=== PATIENT | male | born 1975 | race Caucasian/White ===

== ENCOUNTER 2018-01-28 14:18 | Observation (INO) | payer SELFPAY ==
[2018-01-28 14:34] LABS: ABSOLUTE BASOPHILS # (AUTO) 0.1 10^3/uL (0.0-0.2); ABSOLUTE MONOCYTES (AUTO) 1.5 10^3/uL (0.1-1.4); ABSOLUTE NEUT (AUTO) 12.9 10^3/uL (1.7-8.2); BASOPHILS % (AUTO) 0.4 % (0-2); EOSINOPHILS % (AUTO) 0.3 % (0-6); HEMATOCRIT 50.1 % (37.9-51.0); HEMOGLOBIN 17.2 g/dL (13.5-17.0); LYMPHOCYTES % (AUTO) 12.1 % (13-45); MEAN CORPUSCULAR HGB CONC 34.2 g/dL (32.0-36.0); MEAN CORPUSCULAR VOLUME 88 fl (80-97); MONOCYTES % (AUTO) 8.8 % (3-13); PLATELET COUNT 182 10^3/uL (150-450); RED BLOOD COUNT 5.72 10^6/uL (4.35-5.55); RED CELL DISTRIBUTION WIDTH 13.6 % (11.5-14.0); SEGMENTED NEUTROPHILS % (AUTO) 78.4 % (42-78); TOTAL CELLS COUNTED % (AUTO) 100 %; WHITE BLOOD COUNT 16.5 10^3/uL (4.0-10.5)
--- NOTE | 2018-01-28 14:50 | ER Document Report ---
ED Cardiac - General Mode of Arrival: Ambulatory Information source: Patient TRAVEL OUTSIDE OF THE [place] IN LAST 30 DAYS: No <MARYBEL BUI - Last Filed: 01/28/18 16:07> <COLEMAN MIRELES - Last Filed: 01/28/18 16:34> - General Chief Complaint: Chest Pain Stated Complaint: CHEST PAIN Time Seen by Provider: 01/28/18 14:35 Notes: 42 y.o male presents to the ED via EMS with CP of onset a couple of days ago. He reports that the pain started as just a discomfort but began to radiate to his LT armpit and now he describes the pain as sharp. Pt states that last night his CP was unbearable and when he was walking through a parking lot last night his pain and SOB was exacerbated. He states that normally he is very healthy and does not sleep all the time, but last night he slept for about 13 hours. Pt states that his pain is worsened with deep breaths. He states that the pain is increased with pushing on the LT side of his chest but pain is not increased with pushing to the right side of chest. Pt was given ASA 324mg, 1 Nitro, and 4mg Zofran by EMS en route, from which he reports some relief. Pt denies any recent travel or sitting for long periods of time. Patient denies any hx of HTN, however he reports he had his BP taken at the drug store prior to coming to the ED and it was 194/114. Pt denies any medical issues. He reports a PSHx of cholecystectomy. He reports a family hx of AZ with his father at age 44 and a pulmonary embolism with his paternal grandfather. (MARYBEL BUI) - Related Data Allergies/Adverse Reactions: morphine [Morphine] Allergy (Verified 09/06/15 16:38) Past Medical History - General Information source: Patient - Social History Smoking Status: Current Every Day Smoker Cigarette use (# per day): No Chew tobacco use (# tins/day): No Smoking Education Provided: No Frequency of alcohol use: None Drug Abuse: None Family History: Arthritis, CAD, CVA, DM, Hyperlipidemia, Hypertension, Malignancy, Thyroid Disfunction, Other - [place]: Paternal father at age 44; Pulmonary Embolis: Paternal grandfather. Musculoskeltal Medical History: Denies Hx Arthritis Past Surgical History: Reports: Hx Cholecystectomy - Immunizations Hx Diphtheria, Pertussis, Tetanus Vaccination: No <MARYBEL BUI - Last Filed: 01/28/18 16:07> Review of Systems - Review of Systems Constitutional: No symptoms reported EENT: No symptoms reported Cardiovascular: See HPI, Chest pain - radiating to LT armpit Respiratory: See HPI, Short of breath Gastrointestinal: No symptoms reported Genitourinary: No symptoms reported Male Genitourinary: No symptoms reported Musculoskeletal: No symptoms reported Skin: No symptoms reported Hematologic/Lymphatic: No symptoms reported Neurological/Psychological: No symptoms reported -: Yes All other systems reviewed and negative <MARYBEL BUI - Last Filed: 01/28/18 16:07> Physical Exam <MARYBEL BUI - Last Filed: 01/28/18 16:07> <COLEMAN MIRELES - Last Filed: 01/28/18 16:34> - Vital signs Vitals: Temp Resp BP Pulse Ox 98.7 F 14 132/91 H 96 01/28/18 14:28 01/28/18 14:28 01/28/18 14:28 01/28/18 14:28 - Notes Notes: PHYSICAL EXAM GENERAL: Alert, interacts well. No acute distress. HEAD: Normocephalic, atraumatic. EYES: Pupils equal, round, and reactive to light. Extraocular movements intact. ENT: Oral mucosa moist, tongue midline. NECK: Full range of motion. Supple. Trachea midline. LUNGS: Clear to auscultation bilaterally, no wheezes, rales, or rhonchi. No respiratory distress. HEART: Regular rate and rhythm. No murmurs, gallops, or rubs. Chest pain is increased with palpation to his LT sided chest but not to his RT sided chest. ABDOMEN: Soft, non-tender. Non-distended. Bowel sounds present in all 4 quadrants. No guarding, rebound, or rigidity. EXTREMITIES: Moves all 4 extremities spontaneously. No edema, radial and dorsalis pedis pulses 2/4 bilaterally. No cyanosis. NEUROLOGICAL: Alert and oriented x3. Normal speech. PSYCH: Normal affect, normal mood. SKIN: Warm, diaphoretic. Normal turgor. No rashes or lesions noted. (MARYBEL BUI) Course - Laboratory Result Diagrams: 01/28/18 13:48 01/28/18 13:48 <MARYBEL BUI - Last Filed: 01/28/18 16:07> - Laboratory Result Diagrams: 01/28/18 13:48 01/28/18 13:48 <COLEMAN MIRELES - Last Filed: 01/28/18 16:34> - Re-evaluation Re-evalutation: 01/28/18 16:32 CBC shows leukocytosis with white count of 16.2 there is some hemoconcentration as the hemoglobin is 17.2 otherwise unremarkable, d-dimer -0.27, patient is low risk [address] [place], show slightly elevated sodium at 145.2, CO2 slightly low 21, initial cardiac enzymes negative, no evidence of renal failure. Chest x -ray unremarkable. Initial EKG is nonischemic. Patient had pain that was relieved by nitroglycerin however he now states that he feels like an elephant is sitting on his chest, repeat EKG was ordered and this is also nonischemic. Patient's heart score is 3 however I am very concerned by the description of his pain and his family history of a father who from a heart attack at 45. I did discuss the patient with Dr. Ana Carson and my concern for unstable angina and he agrees to admit the patient to his service in observation status for a chest pain rule out. (COLEMAN MIRELES) - Vital Signs Vital signs: Temp Pulse Resp BP Pulse Ox 98.7 F 17 129/94 H 98 01/28/18 14:28 01/28/18 15:00 01/28/18 15:00 01/28/18 15:00 - Laboratory Laboratory results interpreted by me: 01/28/18 01/28/18 13:48 13:48 WBC 16.5 H RBC 5.72 H Hgb 17.2 H Seg Neutrophils % 78.4 H Lymphocytes % 12.1 L Absolute Neutrophils 12.9 H Absolute Monocytes 1.5 H Sodium 145.2 H Chloride 110 H Carbon Dioxide 21 L - EKG Interpretation by Me Additional EKG results interpreted by me: 01/28/18 16:33 EKG shows sinus rhythm rate of 75, slight left axis deviation, normal intervals , no ST segment elevations or depressions, there is nonspecific T-wave flattening in lead III per my interpretation. Repeat EKG at 1624 shows sinus rhythm at a rate of 64, normal axis, normal intervals, slight left axis deviation, still slight T-wave inversions in lead III per my interpretation. (COLEMAN MIRELES) Discharge <MARYBEL BUI - Last Filed: 01/28/18 16:07> - Discharge Admitting Provider: Hospitalist - [facility] Admitted: Telemetry <COLEMAN MIRELES - Last Filed: 01/28/18 16:34> - Discharge Clinical Impression: Chest pain, rule out acute myocardial infarction Condition: Fair Disposition: ADMITTED OBSERVATION Scribe Attestation: 01/28/18 16:34 I personally performed the services described in the documentation, reviewed and edited the documentation which was dictated to the scribe in my presence, and it accurately records my words and actions. (COLEMAN MIRELES) Scribe Documentation - Scribe Written by Zainab:: Zainab Ayers [id number] 01/28/18 acting as scribe for :: Vanessa <MARYBEL BUI - Last Filed: 01/28/18 16:07>
[2018-01-28] MEDS ORDERED: NITROGLYCERIN 0.4 MG/TAB 25 TAB/BOTTLE SL PRN ×2 (14:53→16:32)
[2018-01-28 15:02] LABS: ALANINE AMINOTRANSFERASE 33 U/L (21-72); ALBUMIN 4.5 g/dL (3.5-5.0); ALKALINE PHOSPHATASE 83 U/L (38-126); ANION GAP 14 (5-19); ASPARTATE AMINO TRANSFERASE 17 U/L (17-59); BILIRUBIN,DIRECT 0.4 mg/dL (0.0-0.4); BILIRUBIN,TOTAL 1.3 mg/dL (0.2-1.3); BLOOD UREA NITROGEN 12 mg/dL (7-20); CALCIUM 10.1 mg/dL (8.4-10.2); CARBON DIOXIDE 21 mmol/L (22-30); CHLORIDE 110 mmol/L (98-107); CREATINE KINASE 71 U/L (55-170); GLUCOSE 90 mg/dL (75-110); POTASSIUM 3.6 mmol/L (3.6-5.0); SODIUM 145.2 mmol/L (137-145); TOTAL PROTEIN 7.5 g/dL (6.3-8.2)
--- NOTE | 2018-01-28 15:11 | RADIOLOGY REPORT (SQ) ---
EXAM DESCRIPTION: CHEST SINGLE VIEW COMPLETED DATE/TIME: 01/28/2018 2:57 pm REASON FOR STUDY: cp COMPARISON: 09/06/2015. EXAM PARAMETERS: NUMBER OF VIEWS: One view. TECHNIQUE: Single frontal radiographic view of the chest acquired. RADIATION DOSE: NA LIMITATIONS: None. FINDINGS: LUNGS AND PLEURA: No opacities, masses or pneumothorax. No pleural effusion. MEDIASTINUM AND HILAR STRUCTURES: No masses. Contour normal. HEART AND VASCULAR STRUCTURES: Heart normal in size. Normal vasculature. BONES: No acute findings. HARDWARE: None in the chest. OTHER: No other significant finding. IMPRESSION: NO ACUTE RADIOGRAPHIC FINDING IN THE CHEST. TECHNICAL DOCUMENTATION: JOB ID: [id number] [employer]- All Rights Reserved Reading location - IP/workstation name: [email or web address]
[2018-01-28 15:12] LABS: CREATINE KINASE MB 0.41 ng/mL (<4.55)
[2018-01-28 15:13] LABS: TROPONIN I < 0.012 ng/mL
[2018-01-28] MEDS ORDERED: NORMAL SALINE 1000 ML 1,000 ML IV ONE (16:27)
[2018-01-28] MEDS ORDERED: ENOXAPARIN SODIUM INJ 100 MG/1 ML DISP.SYRIN SUBCUT ONE (16:34)
[2018-01-28] MEDS ORDERED: ACETAMINOPHEN 325 MG TABLET PO PRN (17:28)
--- NOTE | 2018-01-28 18:07 | PDOC H&P ---
History of Present Illness Admission Date/PCP: 01/28/18 16:58 Patient complains of: Chest pain/chest pressure History of Present Illness: MICHELLE BANERJEE is a 42 year old male denies significant past medical history , has history of smoking and a significant family history of CAD, who presented to the ED with complaints of chest pain for about 4 days. It is left-sided and radiates to left shoulder, and worse with movements. Denies diaphoresis, no nausea or vomiting. He had dyspnea and felt like he almost passed out. Today he went to one of the local pharmacies to check his blood pressure and it was markedly elevated at 190/114. EMS was called and patient brought to the ED where EKG only significant for inverted T-wave in lead III. He was treated with nitro with relief. Patient describes pain as pressure, like an elephant man sitting on his chest. There is no radiation to the back. Chest pain was recurrent, and patient referred for admission. He denies lower extremity swelling, no orthopnea or PND. Past Medical History Musculoskeltal Medical History: Denies: Arthritis Past Surgical History Past Surgical History: Reports: Cholecystectomy Social History Smoking Status: Current Every Day Smoker Family History Family History: Arthritis, CAD, CVA, DM, Hyperlipidemia, Hypertension, Malignancy, Thyroid Disfunction, Other - [place]: Paternal father at age 44; Pulmonary Embolis: Paternal grandfather. Parental Family History Reviewed: Yes Children Family History Reviewed: Yes Sibling(s) Family History Reviewed.: Yes Medication/Allergy Allergies/Adverse Reactions: morphine [Morphine] Allergy (Verified 09/06/15 16:38) Review of Systems Review of Systems: CONSTITUTIONAL : Fever, chills -- No; unexpalined fatigue -- No EENT: Denies eye, ear, throat, or mouth pain or symptoms. Denies nasal or sinus congestion or discharge. Denies throat, tongue, or mouth swelling or difficulty swallowing. CARDIOVASCULAR: As in HPI RESPIRATORY: Denies cough, no shortness of breath, difficulty breathing. GASTROINTESTINAL: Denies abdominal pain or distention. Denies nausea, vomiting , or diarrhea. No rectal bleeding. GENITOURINARY: Urinary symptoms -- no. MUSCULOSKELETAL: No acute weakness SKIN: Denies rash, lesions or sores. HEMATOLOGIC : Denies easy bruising or bleeding. LYMPHATIC: Denies swollen, enlarged glands. NEUROLOGICAL: New weakness, headaches, slured speach - No PSYCHIATRIC: Changes anxiety or stress, depression, suicidal ideation, or homicidal ideation -- No ALL OTHER SYSTEMS REVIEWED AND NEGATIVE. Physical Exam Vital Signs: Temp Pulse Resp BP Pulse Ox 98.7 F 17 my extensive physical 129/94 H 98 01/28/18 14:28 01/28/18 15:00 01/28/18 15:00 01/28/18 15:00 GENERAL: Well-developed, no acute distress HEENT: Normocephalic/atraumatic NECK supple, no JVD CARDIOVASCULAR: RRR, normal S1-S2, no appreciable murmur LUNGS: CTA bilaterally ABDOMEN: Soft, NT, NL bowel sounds EXTREMITIES: No edema, clubbing, cyanosis NEUROLOGICAL: Alert, oriented x 3, nonfocal Results Impressions: Chest X-Ray 01/28/18 14:21 IMPRESSION: NO ACUTE RADIOGRAPHIC FINDING IN THE CHEST. Assessment & Plan - Diagnosis (1) Chest pain Is this a current diagnosis for this admission?: Yes Plan: We will admit patient to 24 hours observation. Rule out AR with serial troponin. Will check exercise Cardiolite and echocardiogram in a.m. if. rules out for AR. Will also obtain cardiology consult given patient's significan family history of coronary artery disease. States father had CAD and bypass surgery at age 50, grandfather of AR at age 44. -We will treat with nitro, aspirin, and O2 if decreased oxygenation. -Check lipids panel in a.m. -Will also check d-dimer. Consider CTA if elevated. (2) Nicotine addiction Is this a current diagnosis for this admission?: Yes Plan: Smoking cessation counseling done. Patient declined nicotine patch at this time. (3) Hypertensive urgency Is this a current diagnosis for this admission?: Yes Plan: Blood pressure better at this time. Will monitor. (4) Leukocytosis Is this a current diagnosis for this admission?: Yes Plan: White blood cells 16,000. Questionable etiology. Will check UA. Chest x-ray negative.
--- NOTE | 2018-01-28 18:18 | EKG REPORT ---
SEVERITY:- NORMAL ECG - SINUS RHYTHM : Confirmed by: Bruce Barnett MD 28-Jan-2018 18:18:11
--- NOTE | 2018-01-28 18:18 | EKG REPORT ---
SEVERITY:- NORMAL ECG - SINUS RHYTHM : Confirmed by: Bruce Barnett MD 28-Jan-2018 18:18:18
[2018-01-28] MEDS ORDERED: ASPIRIN 81 MG TABLET, ENT COATED PO ONE (19:00)
--- NOTE | 2018-01-28 20:27 | PDOC CONSULTATION ---
Consultation Consult Date: 01/28/18 Attending physician:: LALITO Tran ON[facility] Consult reason:: Chest pain, near syncope History of Present Illness Admission Date/PCP: 01/28/18 16:58 Patient complains of: Chest pain History of Present Illness: MICHELLE BANERJEE is a 42 year old male denies significant past medical history , has history of smoking and a significant family history of CAD, who presented to the ED with complaints of chest pain for about 4 days. It is left-sided and radiates to left shoulder, and worse with movements. Denies diaphoresis, no nausea or vomiting. He had dyspnea and felt like he almost passed out. Today he went to one of the local pharmacies to check his blood pressure and it was markedly elevated at 190/114. EMS was called and patient brought to the ED where EKG only significant for inverted T-wave in lead III. He was treated with nitro with relief. Patient describes pain as pressure, like an elephant man sitting on his chest. There is no radiation to the back. Chest pain was recurrent, and patient referred for admission. He denies lower extremity swelling, no orthopnea or PND. Patient describes history of smoking about half pack per day. He denied any illicit drug abuse. The nurse reported that patient's partner recently had myocardial infarction and had some cardiac procedure performed. Patient currently out of a job. Although he denies any stress, he seems somewhat stressed out. 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 He denied stress at work in the past. Past Medical History Musculoskeltal Medical History: Denies: Arthritis Past Surgical History Past Surgical History: Reports: Cholecystectomy, Other - Oral surgery Social History Information Source: Patient Smoking Status: Current Every Day Smoker Drugs: None - Advance Directive Resuscitation Status: Full Code Surrogate healthcare decision maker:: Patient's mother Family History Family History: Arthritis, CAD, CVA, DM, Hyperlipidemia, Hypertension, Malignancy, Thyroid Disfunction, Other - [place]: Paternal father at age 44; Pulmonary Embolis: Paternal grandfather. Parental Family History Reviewed: Yes Children Family History Reviewed: Yes Sibling(s) Family History Reviewed.: Yes - Patient's father had stents and CABG in his early 50s. Medication/Allergy Home Medications: No Home Medications 01/28/18 Allergies/Adverse Reactions: No Known Allergies Allergy (Unverified 01/28/18 19:54) Review of Systems Review of Systems: Please see history of present illness and past medical history as wall. Constitutional: No fever or chills reported. Head : No recent chronic headaches, recent head injury. Eyes: No recent eye pain, diplopia, redness, discharge, acute visual changes. Ears: No recent chronic ear pain, acute hearing loss, ear discharge. Oral cavity: No recent ulcerations, bleeding, oral cavity discomfort. Neck: No recent acute neck pain reported. Hematologic: No recent easy bruising or bleeding. Lymphatic: No recent lymph node enlargement reported. Cardiovascular system review: See history of present illness. Respiratory system review: No hemoptysis or blood clots in the lungs reported. Mild Shortness of breath on exertion Gastrointestinal system review: Negative for any recent acute hematemesis, melena. Genitourinary system review: No recent acute or chronic hematuria, flank pain, UTI etc. reported. Skin system review: Negative for any recent abnormal bruising, no rash, no pruritus reported. Neurologic: No prior history of strokes, mini strokes, seizure disorder. Psychologic: No history of major psychosis or major depression reported. Musculoskeletal: Minor aches and pains reported. No acute joint swelling reported. Endocrine: No recent polyuria, polydipsia, recent heat or cold intolerance. Physical Exam Vital Signs: Temp Pulse Resp BP Pulse Ox 98.7 F 71 20 134/81 H 97 01/28/18 18:15 01/28/18 19:46 01/28/18 18:00 01/28/18 18:00 01/28/18 18:00 Exam: GENERAL: well-nourished and in no acute distress. Alert and oriented x3 HEAD: Atraumatic, normocephalic. EYES: Pupils equal round and reactive to light, extraocular movements intact, sclera anicteric, conjunctiva are normal. ENT: TMs normal, nares patent, oropharynx clear without exudates. Moist mucous membranes. No oral ulcerations or bleeding gums noted NECK: supple without lymphadenopathy. Trachea is central. No cervical or axillary lymphadenopathy noted. Carotids are 2+, JVD WNL LUNGS: Respiration seems nonlabored, no significant accessory muscle action noted. Breath sounds clear to auscultation bilaterally and equal noted. No wheezes rales or rhonchi noted. No significant dullness noted on percussion. CHEST: Palpation of the chest wall shows no significant chest wall tenderness. 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 ABDOMEN: Soft, no significant tenderness appreciated, normoactive bowel sounds. No guarding, no rebound. No rigidity noted . No masses appreciated. EXTREMITIES: Pedal pulses are 1-2+, no calf tenderness noted. No clubbing or cyanosis. negative pedal edema noted NEUROLOGICAL: Focused neurological exam showed no significant neurologic deficit. Normal speech, no focal weakness appreciated. PSYCH: Normal mood, normal affect. Judgment and insight within normal limits. SKIN: No significant ecchymosis, skin is noted to be warm. MUSCULOSKELETAL EXAM: No significant acute joint swelling noted. Results Laboratory Results: 01/28/18 18:50 Troponin I < 0.012 EKG Comments: Sinus rhythm, no acute ST-T wave changes are noted. Impressions: Chest X-Ray 01/28/18 14:21 IMPRESSION: NO ACUTE RADIOGRAPHIC FINDING IN THE CHEST. Assessment & Plan - Diagnosis (1) Chest pain Qualifiers: Chest pain type: unspecified Qualified Code(s): R07.9 - Chest pain, unspecified Is this a current diagnosis for this admission?: Yes (2) Tobacco abuse Is this a current diagnosis for this admission?: Yes (3) Near syncope Is this a current diagnosis for this admission?: Yes (4) High BP reading Is this a current diagnosis for this admission?: Yes - Notes Notes: Chest pain: Multiple differential diagnoses discussed with the patient. So far cardiac enzymes and EKG 2 has been negative. Discussed possibility of panic attack, gastroesophageal reflux. Will schedule patient for a stress test. Tobacco abuse: Patient advised to quit smoking. Near syncope: Could be related to severe hypertension noted on presentation. Patient however denies prior history of hypertension. Possible anxiety panic disorder causing this. Will recommend a 2D echo. High blood pressure reading: Patient describes no prior history of hypertension. Monitor blood pressure while inpatient. - Time Time Spent: 30 to 50 Minutes - CODE STATUS was discussed, patient remains full code. Surrogate decision-maker patient's mother. Multiple medical problems were addressed. More than 50% of the time spent coordinating care, discussing management plans with involved caregivers. Management plans discussed with involved personnels. Medical decision making was of moderate to high complexity , patient's has multiple comorbidities. Medications reviewed and adjusted accordingly: Yes
[2018-01-28 20:42] LABS: APPEARANCE,URINE CLEAR; BILIRUBIN,URINE NEGATIVE (NEGATIVE); COLOR,URINE YELLOW; GLUCOSE, URINE NEGATIVE (NEGATIVE); KETONES,URINE 20 mg/dL (NEGATIVE); LEUKOCYTE ESTERASE,URINE NEGATIVE (NEGATIVE); NITRITE,URINE NEGATIVE (NEGATIVE); PROTEIN,URINE NEGATIVE (NEGATIVE); URINE SPECIFIC GRAVITY 1.023
[2018-01-28 20:57] LABS: URINE AMPHETAMINES SCREEN NEGATIVE; URINE BARBITURATES SCREEN NEGATIVE; URINE BENZODIAZEPINES SCREEN NEGATIVE; URINE COCAINE SCREEN NEGATIVE; URINE METHADONE SCREEN NEGATIVE; URINE PHENCYCLIDINE SCREEN NEGATIVE
[2018-01-28 21:13] LABS: URINE MARIJUANA (THC) SCREEN UNCONFIRMED POSITIVE
[2018-01-29 05:50] LABS: CHOLESTEROL 107.91 mg/dL (0-200); TRIGLYCERIDES 89 mg/dL (<150)
[2018-01-29 06:01] LABS: DIRECT LDL 48 mg/dL (<100)
[2018-01-29 08:42] VITALS: BP 123/71
[2018-01-29] MEDS ORDERED: ENOXAPARIN SODIUM INJ 40 MG/0.4 ML DISP.SYRIN SUBCUT SCH (10:00)
[2018-01-29] MEDS ORDERED: ASPIRIN 81 MG TABLET, ENT COATED PO SCH (10:00)
[2018-01-29] MEDS ORDERED: NITROGLYCERIN 0.4 MG/TAB 25 TAB/BOTTLE ONE (11:53)
--- NOTE | 2018-01-29 13:07 | XCELERA REPORT ---
[address] [address] Transthoracic Echocardiogram Report Name: MICHELLE BANERJEE Age: 42 yrs Gender: Male : 1975 Patient Status: Inpatient Patient Location: [address] [place] [address] Study Date: 01/29/2018 11:26 AM Height: 74 in Weight: 195 lb BSA: 2.1 m2 Procedure: A two-dimensional transthoracic echocardiogram with color flow Doppler was performed. Study Quality: Good. Reason For Study: chest pressure ? Chest Pain History: chest pressure ? Chest Pain. Ordering Physician: LALITO FROST Performed By: Jaylene Acuna Interpretation Summary The left ventricle is normal in size. There is normal left ventricular wall thickness. LV EF is > than 65% Left ventricular systolic function is normal. Doppler measurements suggest normal left ventricular diastolic function ( by Tissue doppler). The left ventricular wall motion is normal. There is no thrombus. The right ventricle is normal in size and function. The right atrium is normal. The left atrial size is normal. The interatrial septum is intact with no evidence for an atrial septal defect. There is no evidence of mitral valve prolapse. There is no vegetation seen on the mitral valve. There is no mitral valve stenosis. There is no mitral regurgitation noted. The aortic valve is trileaflet. The aortic valve opens well. There is no aortic valvular vegetation. There is no aortic valve stenosis There is no LVOT obstruction. No aortic regurgitation is present. There is no tricuspid stenosis. No tricuspid regurgitation. Unable to calculate RVSP / Pulmonary Hypertension due to insuficient TR jet. There is no pericardial effusion. MMode/2D Measurements & Calculations RVDd: 3.5 cm LVIDd: 4.3 cm FS: 32.4 % Ao root diam: 3.3 cm IVSd: 0.90 cm LVIDs: 2.9 cm EDV(Teich): 81.8 ml LVPWd: 0.91 cmESV(Teich): 31.9 ml Ao root area: 8.8 cm2 EF(Teich): 61.0 % LA dimension: 3.1 cm LVOT diam: 2.2 cm LVOT area: 3.9 cm2 Doppler Measurements & Calculations MV E max moe: MV P1/2t max moe: Ao V2 max: LV V1 max P.2 cm/sec 59.7 cm/sec 129.8 cm/sec 4.7 mmHg MV A max moe: MV P1/2t: 71.0 msec Ao max PG: LV V1 max: 56.0 cm/sec MVA(P1/2t): 3.1 cm2 6.7 mmHg 108.7 cm/sec MV E/A: 1.1 MV dec slope: JOSE(V,D): 3.3 cm2 246.3 cm/sec2 PA V2 max: 117.0 cm/sec PA max P.5 mmHg Left Ventricle The left ventricle is normal in size. There is normal left ventricular wall thickness. LV EF is > than 65%. Left ventricular systolic function is normal. Doppler measurements suggest normal left ventricular diastolic function. ( by Tissue doppler). The left ventricular wall motion is normal. There is no thrombus. There is no ventricular septal defect visualized. Right Ventricle The right ventricle is normal in size and function. Atria The right atrium is normal. The left atrial size is normal. The interatrial septum is intact with no evidence for an atrial septal defect. Mitral Valve There is no evidence of mitral valve prolapse. There is no vegetation seen on the mitral valve. There is no mitral valve stenosis. There is no mitral regurgitation noted. Aortic Valve The aortic valve is trileaflet. The aortic valve opens well. There is no aortic valvular vegetation. There is no aortic valve stenosis. There is no LVOT obstruction. No aortic regurgitation is present. Tricuspid Valve There is no tricuspid stenosis. No tricuspid regurgitation. Unable to calculate RVSP / Pulmonary Hypertension due to insuficient TR jet. Pulmonic Valve There is no pulmonic valvular stenosis. There is no pulmonic valvular regurgitation. Great Vessels The aortic root is normal size. Effusions There is no pericardial effusion. : LALITO FROST > Irene Romero
--- NOTE | 2018-01-29 13:19 | DRAGON STRESS TEST REPORT ---
Exercise EKG treadmill Cardiolite stress test using SPECT. Data procedure: 01/29/2018. Ordering Physician: Hospitalist. Status: In Patient. Indication:: Chest Pressure/Chest Pain. Coronary risk factors: Age, tobacco abuse disorder, and family history of premature coronary artery disease. Significant physical findings prior to stress testing show a blood pressure of 128/85, and a heart rate of 76 beats per minute, and no ectopics seen. Auscultation of the heart shows normal S1 and S2. No S3 or S4 gallops. Systolic murmur in the left sternal border and apex. Lungs are clear to auscultation and percussion. Resting 12-lead EKG: Sinus Rhythm. Within Normal Limits. Procedure: The patient was excised on a standard Gage protocol. . The patient walked a total of 6 minutes and 58 seconds on this protocol and reached a peak heart rate of 150 beats per minute, which is 85% maximum predicted heart rate for age. This is at a workload of 8 METS. The test was stopped because of patient's chest pressure symptoms, and achievement of target heart rate. The patient described symptoms of chest pain/pressure in the left front of the chest beginning 3 minutes into exercise at a heart rate of 104] beats per minute. This was described as a 3 out of 5 on a scale of 1-5. At peak exercise the patient had a 4/5 discomfort. These symptoms were not associated with any EKG changes, and there was no hemodynamic compromise. This discomfort totally dissipated immediately after 2 sublingual nitroglycerin given, the second after 5 minutes after the first. Immediately after the second sublingual nitroglycerin the patient's chest pressure/chest pain on the left side of chest completely resolved. Exercise EKG's show: There is no EKG evidence of exercise-induced myocardial ischemia. Arrhythmias seen: None. The blood pressure response was normal. At peak exercise the blood pressure was 124/88 millimeters of Hg. The double product was 25.2 k. Summary of findings and interpretation: 1. The patient's left front of chest pressure symptoms reproduced. This completely resolved immediately after the second sublingual nitroglycerin was given. 2. [No EKG evidence of ischemia in the form of ST segment depression. [? False Negative.] 3. Normal blood pressure response. 4. [No arrhythmias seen. 5. Good] exercise tolerance, [good] aerobic capacity. Diagnostic treadmill stress test negative for ischemia by EKG criteria, but reproduced the patient's symptoms. Recommendations: Correlate with nuclear Cardiolite images. Nuclear data: At rest the patient was given 13.79 millicuries of technetium 99 sestamibi, and as per protocol rest none gated SPECT images were obtained. The patient was exercised on a treadmill [see exercise physiology]. One minute prior to termination of exercise, 40.9 millicuries of technetium and there sestamibi was injected intravenously. As per protocol stress gated images were obtained. Impression: Review of images show that there is contamination artifact. In spite of this all segments of the myocardium had normal perfusion at rest, and normal perfusion post exercise. All segments of the myocardium had normal motion, contraction, and thickening by gated study. T. I D. ratio was normal at 0.94. The computer read rest and stress left ventricular ejection fractions were 44 %, and before % respectively. Visually both the ejection fractions were normal in excess of 55%. Conclusions: 1. The patient's clinical symptoms of exercise-induced myocardial ischemia at a peak heart rate of 150 beats per minute, patient having achieved 85 % of maximum predicted heart rate for age, at a workload of 8 METS. 2. No EKG evidence of exercise-induced myocardial ischemia. [? False Negative. ] 3. No arrhythmias seen. 4. No scintigraphic evidence of exercise-induced myocardial ischemia. 5. No scintigraphic evidence of myocardial infarction/scar. Recommendations 1. In view of the patient's symptoms, which was relieved with sublingual nitroglycerin, in spite of the stress test coming back negative for ischemia or scar would strongly recommend treating the patient with aspirin beta alex and nitrates, and lipid-lowering agent, assuming that this is a false negative stress test, and that the patient does have coronary artery disease.. If patient still has recurrence of symptoms on a good medical therapy for coronary artery disease, then would strongly recommend cardiac catheterization. 2. Aggressive coronary risk factor modificnd treatment of underlying comorbidities.ation, Discussed with the patient, and the hospitalist attending physician of the patient. My cell phone number was given to the patient to contact me if there is any recurrence of chest pain or other symptoms, and to make a follow-up appointment with Dr. Irene Romero in his office. LIBRA
[2018-01-29] MEDS ORDERED: ISOSORBIDE MONONITRATE 60 MG TAB.ER.24H PO SCH (14:00)
[2018-01-29] MEDS ORDERED: ISOSORBIDE MONONITRATE 30 MG TAB.ER.24H PO ONE (14:30)
[2018-01-29] MEDS ORDERED: ATENOLOL 50 MG TABLET PO ONE (14:30)
--- NOTE | 2018-01-29 15:05 | PDOC DISCHARGE SUMMARY ---
General - Admit/Disc Date/PCP Admission Date/Primary Care Provider: 01/28/18 16:58 Discharge Date: 01/29/18 - Discharge Diagnosis (1) Chest pain Is this a current diagnosis for this admission?: Yes (2) Nicotine addiction Is this a current diagnosis for this admission?: Yes (3) Hypertensive urgency Is this a current diagnosis for this admission?: Yes (4) Leukocytosis Is this a current diagnosis for this admission?: Yes - Additional Information Resuscitation Status: Full Code Prescriptions: Atenolol [Tenormin] 25 mg PO DAILY #30 tablet Isosorbide Mononitrate [Imdur 30 mg Tablet.er] 30 mg PO DAILY #30 tab.er.24h Nitroglycerin [Nitrostat 0.4 mg (1/150 Gr) Tabs 25/Bottle] 1 tab SL ASDIR PRN # 25 bottle PRN Reason: Home Medications: Acetaminophen [Tylenol 325 mg Tablet] 650 mg PO Q4HP PRN tablet 01/29/18 Aspirin [Ecotrin 81 mg EC Tablet] 81 mg PO DAILY tabec 01/29/18 Atenolol [Tenormin] 25 mg PO DAILY #30 tablet 01/29/18 Isosorbide Mononitrate [Imdur 30 mg Tablet.er] 30 mg PO DAILY #30 tab.er.24h Nitroglycerin [Nitrostat 0.4 mg (1/150 Gr) Tabs 25/Bottle] 1 tab SL ASDIR PRN # 25 bottle 01/29/18 History of Present Illness History of Present Illness: MICHELLE BANERJEE is a 42 year old male denies significant past medical history , has history of smoking and a significant family history of CAD, who presented to the ED with complaints of chest pain for about 4 days. It is left-sided and radiates to left shoulder, and worse with movements. Denies diaphoresis, no nausea or vomiting. He had dyspnea and felt like he almost passed out. Today he went to one of the local pharmacies to check his blood pressure and it was markedly elevated at 190/114. EMS was called and patient brought to the ED where EKG only significant for inverted T-wave in lead III. He was treated with nitro with relief. Patient describes pain as pressure, like an elephant man sitting on his chest. There is no radiation to the back. Chest pain was recurrent, and patient referred for admission. He denied lower extremity swelling, no orthopnea or PND. Hospital Course Hospital Course: Patient was admitted to 24 hours observation. He ruled out for NM with serial troponin 3. He was seen in consultation by traveling sales executive due to his significant family history for cardiac disease. He had stress known today that was negative for reversible ischemia. This was done by Dr. Romero of cardiology. In spite of the negative stress Cardiolite, Dr. Romero felt the patient posed enoght concern and recommended to discharge him on aspirin, beta-alex, nitrate. Of note is that patient blood pressure has markedly improved. He is doing better at this time, no more chest pain or shortness of breath or palpitations. He is being discharged home in stable condition. He is to follow-up with his PCP within 1 week. He is also to follow-up with Dr. Romero of cardiology within 1 week. He is strongly counseled to quit smoking and he states he would. States he has not needed a cigarette since he was in the hospital has no craving. Mother says that he had leukocytosis, but this is most likely reactive. No fever, UA negative, chest x-ray negative. Patient taken to follow-up with his PCP for further evaluation and further workup as may be needed. Physical Exam Vital Signs: Temp Pulse Resp BP Pulse Ox 98.4 F 67 16 123/71 97 01/29/18 08:00 01/29/18 08:00 01/29/18 08:00 01/29/18 08:00 01/29/18 08:00 Intake & Output 01/28/18 01/29/18 01/30/18 06:59 06:59 06:59 Intake Total 500 Balance 500 Weight 88.9 kg GENERAL: Well-developed, no acute distress CARDIOVASCULAR: RRR, normal S1-S2, no appreciable murmur LUNGS: CTA bilaterally ABDOMEN: Soft, NT, NL bowel sounds EXTREMITIES: No edema, clubbing, cyanosis NEUROLOGICAL: Alert, oriented x 3, nonfocal Results Laboratory Results: 01/28/18 01/29/18 01/29/18 20:15 03:59 03:59 Magnesium 2.1 Triglycerides 89 Cholesterol 107.91 LDL Cholesterol Direct 48 VLDL Cholesterol 18.0 HDL Cholesterol 35 L TSH 0.88 Urine Color YELLOW Urine Appearance CLEAR Urine pH 6.0 Ur Specific [place] 1.023 Urine Protein NEGATIVE Urine Glucose (UA) NEGATIVE Urine Ketones 20 H Urine Blood NEGATIVE Urine Nitrite NEGATIVE Ur Leukocyte Esterase NEGATIVE Urine WBC (Auto) 1 Urine RBC (Auto) 0 01/28/18 01/29/18 18:50 09:03 Troponin I < 0.012 < 0.012 Impressions: Chest X-Ray 01/28/18 14:21 IMPRESSION: NO ACUTE RADIOGRAPHIC FINDING IN THE CHEST. Qualifiers - * PATIENT BEING DISCHARGED WITH ANY OF THE FOLLOWING DIAGNOSIS: No
--- NOTE | 2018-01-29 22:35 | PROGRESS NOTE E ---
Progress Note NAME: MICHELLE BANERJEE : 1975 AGE: 42Y DATE: 01/29/2018 ROOM: 530 SUBJECTIVE: Note that the patient's chart has been reviewed in full, including the cardiac consultation. The patient is to undergo a stress test today. *------*. He also had an echocardiogram. At present the patient has no chest pain, no discomfort. There is no PND, orthopnea. There is no leg edema. There are no palpitations or syncope. There is no arrhythmia seen on the monitor. There are no TIA or CVA symptoms. OBJECTIVE: GENERAL: On examination the patient is well-built and well-nourished in no acute distress. VITAL SIGNS: He is afebrile with a temperature of 98.4 degrees Fahrenheit, pulse is 67 beats per minute, blood pressure is 123/71, respirations are 16 per minute, O2 saturations are 97% on room air. HEENT: Head is atraumatic, normocephalic. Eyes: Pupils are equal, round and regular, reactive to light and accommodation. Extraocular movements are normal. There is no conjunctival pallor. There is no scleral icterus. ENT is negative. NECK: Supple. There is no JVD. There is no lymphadenopathy. There is no goiter. Carotids are equal. There is no bruit. Trachea is central. LUNGS: Clear to auscultation and percussion. At present there is no chest wall tenderness. There are no rhonchi, rales, or wheezing. HEART: S1, S2 is heard. There is no S3 gallop. There is no S4 gallop. There is a systolic murmur in the left sternal border and the apex. There is no rub. ABDOMEN: Soft, nontender. There is no hepatosplenomegaly. Bowel sounds are well heard. There are no tender areas or masses. EXTREMITIES: Femorals are well felt. There are no femoral bruits. Leg pulses are well felt. There is no pedal edema. There is no cyanosis or clubbing. There is no DVT or cellulitis. There is no calf tenderness. CENTRAL NERVOUS SYSTEM: The patient is conscious, awake, alert and oriented x3 with no focal deficits. DIAGNOSTICS: The patient's echocardiogram done today shows the left ventricle is normal in size. There is normal left ventricular wall thickness. LV ejection fraction is greater than 65%. Left ventricular systolic function is normal. The patient's left ventricular diastolic function is also normal by tissue Doppler. The left ventricular wall motion is normal. There is no thrombus. The right ventricle is normal in size and function. The right atrium is normal. The left atrial size is normal. The intraatrial septum is intact. There is no evidence of mitral valve prolapse. There is no mitral stenosis. There is no mitral regurgitation. There is no aortic stenosis or aortic regurgitation. There is no tricuspid stenosis, there is no tricuspid regurgitation. Unable to calculate RVSP/pulmonary hypertension due to insufficient TR jet. There is no pericardial effusion. The patient's last set of troponin I at 9 a.m. this morning was negative. Note that the patient's HDL is 35, his LDL is 48, his triglycerides are 89, and his VLDL is 18. His total cholesterol is 107.91. His TSH is 0.88. The patient's Cardiolite stress test. The patient was exercised on a standard Gage protocol. The patient walked a total of 6 minutes and 58 seconds per protocol and reached a peak heart rate of 150 beats per minute, which is 85% of maximum predicated heart rate for age. This is at a workload of 8 METS. The test was stopped because the patient's chest pressure symptoms and achievement of target heart rate. The patient describes symptoms of chest pain/pressure in the left front of the chest peaking 3 minutes into exercise with a heart rate of 104 beats per minute. This was described as a 3/5 on a scale of 1-5. At peak exercise the patient had a full band like discomfort. These symptoms are not associated with any EKG changes and there is no hemodynamic compromise. Discomfort totally dissipated immediately after 2 sublingual nitroglycerin given at rest. The second sublingual nitroglycerin was given 5 minutes after the first. Immediately after the second sublingual nitroglycerin the patient's chest pain/pressure on the left side of the chest completely resolved. Note there are no EKG changes (? false negative). Review of the images showed that there was no reversible ischemia and there was no scar or LA (? false negative). IMPRESSION: 1. CHEST PRESSURE SYMPTOMS IN A PATIENT WITH MULTIPLE CORONARY ARTERY DISEASE RISK FACTORS WITH A NEGATIVE CARDIOLITE STRESS TEST BUT EXERCISE REPRODUCING THE PATIENT'S SYMPTOMS OF CHEST PRESSURE. 2. MULTIPLE CORONARY ARTERY RISK FACTORS, NAMELY AGE, TOBACCO ABUSE DISORDER, AND PREMATURE CORONARY ARTERY DISEASE IN THE FAMILY. 3. TOBACCO ABUSE DISORDER. 4. NOTE THAT THE PATIENT HAS TRANSIENT HYPERTENSIVE READING, AT PRESENT BLOOD PRESSURE REMAINS STABLE. 5. DYSLIPIDEMIA WITH LOW HDL LEVELS AND LOW/EXCELLENT LDL LEVELS. RECOMMENDATION: In view of the patient's age, risk factors for coronary artery disease, especially with the patient being a smoker, his age, and family history of premature coronary artery disease in spite of negative perfusion imaging, negative EKG changes, but in view of the patient's symptoms being reproduced would treat the patient as having presumed coronary artery disease. Would strongly recommend continue the patient on aspirin 81 mg p.o. daily. Start the patient on isosorbide mononitrate 30 mg p.o. daily and sublingual nitroglycerine 1/150 sublingual p.r.n. as directed, and atenolol 25 mg p.o. daily. The patient has been given my cell phone number and to call me if he has to take 2 or more sublingual nitroglycerin for relieve of chest pressure. If the patient has recurrence of chest pain on medical therapy, which at present has been started and later on will be increased, then would strongly recommend cardiac catheterization. CODE STATUS: Note that the patient is a full code. His mother is his surrogate healthcare decision maker. TIME SPENT: Note 40 minutes spent on this patient with more than 50% of the time spent on direct patient care. Note his medications have been reviewed, his chart has been reviewed, and the case has been discussed with the hospitalist. The patient will be discharged home and the patient will follow up discharge supervisor records change. In the meantime I will give him my cell phone number to contact me if there are any problems. The patient has been instructed on how to take nitroglycerin especially to be seated when taking that. Also nitroglycerin interaction with Viagra and Cialis have all been discussed in detail. Note medical decision making is highly complex. Also, the echo findings were discussed with the patient. DICTATING PHYSICIAN: RAINE PARADA M.D. [id number] PHY#: [id number] ID: [id number] JOB#: [id number] ACCT: [id number] cc: >
[2018-01-30] MEDS ORDERED: ATENOLOL 50 MG TABLET PO SCH (10:00)
[2018-01-30] MEDS ORDERED: ISOSORBIDE MONONITRATE 30 MG TAB.ER.24H PO SCH (10:00)
== END 2018-01-29 16:20 | disposition home or self-care (01) ==
LOC: ER 14:18 → EH 16:58 → 5 19:11
PROVIDERS: ADMIT Internal Medicine; ATTEND Internal Medicine
DX: R07.89 Other chest pain (principal); F17.210 Nicotine dependence, cigarettes, uncomplicated; I16.0 Hypertensive urgency; D72.829 Elevated white blood cell count, unspecified; R06.00 Dyspnea, unspecified; R55 Syncope and collapse; E78.5 Hyperlipidemia, unspecified; Z82.49 Family history of ischemic heart disease and other diseases of the circulatory system; Z56.0 Unemployment, unspecified; Z90.49 Acquired absence of other specified parts of digestive tract
CPT/HCPCS: 93005; 99285; 96372; 36415 ×2; 87086; 82553; 82550; 83735; 84443; 85025; 80053; 81001; 84484 ×2; 80307; 85379; 80061; 93306; 93017; 71045; 78452; 93010; G0378 ×3; A9500; J3490 ×2; J7030; J1650; Q9969

== ENCOUNTER 2018-02-01 18:17 | Emergency (ER) | payer SELFPAY ==
[2018-02-01 18:26] VITALS: BP 137/98
[2018-02-01] MEDS ORDERED: KETOROLAC TROMETHAMINE INJ/PF 30 MG/1 ML SDV IV ONE (20:44)
[2018-02-01] MEDS ORDERED: MORPHINE SULFATE 10 MG/ML INJ IV ONE (20:44)
[2018-02-01] MEDS ORDERED: IPRATROPIUM/ALBUTEROL 0.5-2.5 MG/3 ML AMPUL NEB ONE (20:46)
[2018-02-01] MEDS ORDERED: METOCLOPRAMIDE HCL INJ/PF 10 MG/2 ML SDV IV ONE (20:46)
--- NOTE | 2018-02-01 20:48 | ER Document Report ---
ED Medical Screen (RME) - General Chief Complaint: Abdominal Pain Stated Complaint: ABDOMINAL PAINS Time Seen by Provider: 02/01/18 20:38 Notes: 42 years old female with a history of smoking, cannabis use, presents today with cough for the last several days with wheezing on and off, last 2-3 days being nauseous and vomited many times. Feeling weak and dehydrated. And having epigastric abdominal pain. Denies any fever chills or other constitutional symptoms. Denies any dysuria frequency urgency. I have greeted and performed a rapid initial assessment of this patient. A comprehensive ED assessment and evaluation of the patient, analysis of test results and completion of the medical decision making process will be conducted by additional ED providers. PHYSICAL EXAMINATION: GENERAL: Well-appearing, well-nourished and in no acute distress. HEAD: Atraumatic, normocephalic. EYES: Pupils equal round extraocular movements intact, conjunctiva are normal. ENT: Nares patent NECK: Normal range of motion LUNGS: No respiratory distress, mild wheezing was heard no rales. Abdomen-epigastric tenderness noted otherwise no organomegaly positive bowel sounds Musculoskeletal: Normal range of motion NEUROLOGICAL: Normal speech, normal gait. PSYCH: Normal mood, normal affect. SKIN: Warm, Dry, normal turgor, no rashes or lesions noted. TRAVEL OUTSIDE OF THE [place] IN LAST 30 DAYS: No - Related Data Allergies/Adverse Reactions: No Known Allergies Allergy (Unverified 01/28/18 19:54) Past Medical History Renal/ Medical History: Denies: Hx Peritoneal Dialysis Musculoskeltal Medical History: Denies Hx Arthritis Past Surgical History: Reports: Hx Cholecystectomy, Other - Oral surgery - Immunizations Hx Diphtheria, Pertussis, Tetanus Vaccination: No History of Influenza Vaccine for 06/2017 - 11/2017 Season: No Physical Exam - Vital signs Vitals: Temp Pulse Resp BP Pulse Ox 98.5 F 75 18 137/98 H 98 02/01/18 18:23 02/01/18 18:23 02/01/18 18:23 02/01/18 18:23 02/01/18 18:23 Course - Vital Signs Vital signs: Temp Pulse Resp BP Pulse Ox 98.5 F 75 18 137/98 H 98 02/01/18 18:23 02/01/18 18:23 02/01/18 18:23 02/01/18 18:23 02/01/18 18:23
== END 2018-02-01 21:00 | disposition left against medical advice (07) ==
LOC: ER 18:17
DX: Z53.21 Procedure and treatment not carried out due to patient leaving prior to being seen by health care provider (principal)